=== PATIENT | male | born 1995 | race Two or more races ===

== ENCOUNTER 2024-10-08 03:21 | Emergency (ER) | payer BC, SELFPAY ==
[2024-10-08 03:22] VITALS: BMI 29.0
[2024-10-08 03:31] VITALS: BP 138/91; PULSE 102; RESP 20; TEMP 36.8; O2SAT 97
--- NOTE | 2024-10-08 03:40 | XR_ITS ---
Examination: CT abdomen and pelvis without contrast. Coronal 3-D reconstructions. Sagittal 2-D reconstructions. Date and time of exam:October 08, 2024 0423 hours, comparison August 26, 2010 INDICATIONS: Onset of bilateral flank pain today CTDI: vol (mGy): 10.3 DLP: (mGycm): 611 Technique: Axial images of the abdomen have been obtained, 3 mm slice thickness Intravenous contrast material has not been administered. Low dose protocols were performed. One or more of the following dose reduction techniques were used; automated exposure control, adjustment of the mA and/or KV according to patient size, use of iterative reconstruction technique. Findings: No focal liver or splenic lesions No gallstones No pancreatic or adrenal mass No renal or ureteral calculi, no hydronephrosis Abdominal aorta normal size Normal appendix No bowel obstruction No diverticulitis No prostatomegaly Contracted urinary bladder IMPRESSION: No acute process in the abdomen or pelvis
[2024-10-08] MEDS: KETOROLAC INJ 60 MG/2 ML VIAL IM (04:40)
[2024-10-08 04:57] VITALS: BP 145/95; PULSE 85; RESP 20; TEMP 36.8; O2SAT 97
[2024-10-08 04:59] LABS: Collection Type, Urine Clean Catch; Squamous Epithelial Cell,Urine 0 /hpf (0-5)
[2024-10-08 05:04] LABS: Basophils # (Auto) 0.1 Thou/mm3 (0.0-0.2); Basophils % (Auto) 1 % (0-2.5); Eosinophils # (Auto) 0.3 Thou/mm3 (0.0-0.5); Eosinophils % (Auto) 3 % (0-10); Hematocrit 40.6 % (41.0-53.0); Hemoglobin 14.2 g/dL (13.5-16.0); Immature Granulocytes % (Auto) 0 % (0-0); Immature Granulocytes Auto 0.03 Thou/mm3 (0.00-0.00); Lymphocytes # (Auto) 0.9 Thou/mm3 (1.0-4.8); Lymphocytes % (Auto) 10 % (10-50); Mean Corpuscular Hemoglobin 29.2 pg (25.0-35.0); Mean Corpuscular Volume 84 fL (80-100); Monocytes # (Auto) 0.8 Thou/mm3 (0.0-0.8); Monocytes % (Auto) 9 % (0-12); Neutrophils # (Auto) 7.2 Thou/mm3 (1.8-7.7); Neutrophils % (Auto) 77 % (37-80); Nucleated Red Blood Cell % 0 /100 WBC (0); Platelet Count 203 Thou/mm3 (140-440); RDW Standard Deviation 42.1 fL (35.1-43.9); Red Blood Count 4.86 Miln/mm3 (4.50-5.90); White Blood Count 9.3 Thou/mm3 (3.8-10.6)
[2024-10-08 05:06] LABS: Bilirubin,Urine Negative (Negative); Blood,Urine Negative (Negative); Clarity,Urine Clear (Clear/Hazy); Color,Urine Yellow (Lt Yel-Yel); Culture Indicated,Urine Not Indicated; Glucose, Urine Negative (Negative); Ketones,Urine Negative (Negative); Leukocyte Esterase,Urine Negative (Negative); Nitrite,Urine Negative (Negative); Protein,Urine 1+ (Neg - Trace); RBC,Urine 7 /hpf (0-3); Urobilinogen,Urine Negative mg/dL (0.0-1.0); WBC,Urine 2 /hpf (0-5)
--- NOTE | 2024-10-08 05:11 | PRELIM_ITS ---
CT scan of the abdomen and pelvis without intravenous contrast (axial sections with sagittal and coronal reformats) October 08, 2024 0423 hours Clinical History: L Flank pain Comparison: No prior study is available for comparison. Findings: The lung bases are clear. The liver, gallbladder, pancreas, spleen, kidneys and adrenals are unremarkable on this noncontrast study. No evidence of bowel obstruction. A moderate amount of fecal material is present in the colon. The appendix is within normal limits (coronal images 72-77/167 ). There is no mesenteric or retroperitoneal adenopathy. The urinary bladder is incompletely distended at the time of the examination. There is mild enlargement of the prostate with calcification .There is no free fluid or free air. The osseous structures are unremarkable. Impression: No evidence of renal/ureteric calculus or hydroureteronephrosis. Other findings as described above. Report Electronically Signed By: Karishma Brewster 10/08/2024 5:10:47 AM [EST]
[2024-10-08 05:24] LABS: Alanine Aminotransferase 23 U/L (10-49); Albumin, Serum 4.4 gm/dL (3.5-5.0); Albumin/Globulin Ratio 1.5 (1.2-2.2); Alkaline Phosphatase 107 U/L (46-116); Anion Gap 9 (7-16); Aspartate Amino Transferase 28 U/L (0-34); BUN/Creatinine Ratio 15 Ratio (12-20); Bilirubin,Total 0.3 mg/dL (0.3-1.2); Blood Urea Nitrogen 18 mg/dL (9-23); Calcium 8.9 mg/dL (8.3-10.6); Calcium (Corrected) 8.9 mg/dL (8.5-10.1); Carbon Dioxide 28.7 mMol/L (20.0-31.0); Chloride 106 mMol/L (98-107); Creatinine (Component) 1.2 mg/dL (0.6-1.3); Estimated Creatinine Clearance 92.4 mL/min (>60); Globulin 2.9 gm/dL (2.3-3.5); Glucose 109 mg/dL (74-106); Lipase 33 U/L (12-53); Osmolality,Calculated 289 (275-295); Potassium 4.2 mMol/L (3.4-5.1); Sodium 144 mMol/L (136-145); Total Protein 7.3 gm/dL (5.7-8.2); eGFR > 60 See Note
--- NOTE | 2024-10-08 05:37 | XR_ITS ---
Examination: Testicular sonography complete TECHNIQUE: Patterson scale sonographic images densities, assessment arterial inflow and venous outflow Doppler spectrum analysis Date and time: October 08, 2024 0715 hours INDICATIONS: Onset acute testicular pain on the left beginning 4 hours ago FINDINGS: Right testis 3.7 cm epididymis 1.4 cm Arterial flow to the testicle. No testicular mass Left testis is 3.6 cm epididymis 1.0 cm Arterial flow to the testicle. No testicular Mass. Minimal hydrocele IMPRESSION: Increased flow to both testes, orchitis pattern
--- NOTE | 2024-10-08 05:37 | PD.EDRME ---
Rapid Medical Screening Exam RME Arrival date/time: 10/08/24 03:21 29M with no significant PMH presents to ED with sudden L flank/testicular pain about 1 hour ago. Patient denies dysuria. Chief Complaint: Abdominal Pain Time Seen by Provider: 10/08/24 03:39 Vital signs: Vital Signs Temperature 98.3 F 10/08/24 03:31 Pulse Rate 102 H 10/08/24 03:31 Respiratory Rate 20 10/08/24 03:31 Blood Pressure 138/91 H 10/08/24 03:31 Pulse Oximetry (%) 97 10/08/24 03:31 Oxygen Delivery Method Room Air 10/08/24 03:31
[2024-10-08 06:20] VITALS: BP 127/78; PULSE 76; RESP 20; TEMP 36.7; O2SAT 98
[2024-10-08 07:53] VITALS: BP 138/81; PULSE 71; RESP 16; TEMP 36.9; O2SAT 97
--- NOTE | 2024-10-08 08:25 | EDNOTE_ITS ---
ED General RME/HPI General Chief complaint: Abdominal Pain Stated complaint: L FLANK/L ABD Time Seen by Provider: 10/08/24 03:39 Arrival date/time: 10/08/24 03:21 RME / HPI RME / HPI narrative: 10/08/24 03:21 29M with no significant PMH presents to ED with sudden L flank/testicular pain about 1 hour ago. Patient denies dysuria. DR. ROMERO MAIN ED EVALUATION: 29 year old male presents to the Emergency Department with complaint of left lower abdominal pain today. Associated mild sweating. No dysuria, diarrhea, blood in the stools, or other symptoms reported. Patient also states he has cough, runny nose, sore throat, and body aches onset 2 days. Related Data Allergies Allergy/AdvReac Type Severity Reaction Status Date / Time No Known Allergies Allergy Unverified 10/08/24 08:35 Review of Systems Review of Systems Systems Reviewed: All systems reviewed, normal except as documented Past Medical History Social History SMOKING STATUS: Never smoker ED Exam Narrative Physical exam: Physical Exam: General: The vital signs were reviewed. The patient is non-toxic, in no apparent distress and appears healthy with a patent airway, no respiratory distress and has no apparent circulatory problems. Head & Scalp: Normocephalic, atraumatic. Face: Appears normal and is without lesions, deformity. Ears: Left external pinna appears normal. Right external pinna appears normal. Eyes: The sclera is anicteric. No obvious photophobia. The Left and Right Orbit/Lid/Conjunctiva appears normal without swelling, discoloration or injection. Nose: The nose is without deformity, discharge or tenderness; Throat: Appears normal. The mucous membranes are pink and moist without exudates, redness or mass seen. The tongue appears normal. Neck: The neck is supple and no apparent mass or adenopathy. Chest: The chest wall is normal in size and symmetry and has no chest wall tenderness or crepitus. The patient displays normal ventilator effort without retractions, accessory muscle use and has adequate air movement bilaterally with no wheezes and no rales. Cardiovascular: Regular rate and rhythm; No murmurs, rubs, or gallops; Gastrointestinal: The abdomen appears normal. No obvious hernias or mass. The abdomen with some vague left lower quadrant tenderness otherwise is soft and benign, non-distended, with no pain, no guarding and no rebound tenderness. Bowel sounds are present and normal sounding. No CVA tenderness. Genitourinary: Nontender Back/Spine: Normal inspection Extremities/Musculoskeletal/lymphatic: The bilateral upper and lower extremities are warm. There is no evidence of arterial insufficiency. There is no evidence of venous insufficiency/edema. The patient spontaneously moves bilateral upper and lower extremities with no pain and no limitation of movement. There is no apparent, injury or trauma. Skin: The skin is warm, dry and intact. No rashes. No petechia. No purpura. No abnormal bruising. The color is appropriate with no cyanosis. Mental status/Psychiatric: Mental status is appropriate for age. The patient has no apparent delusions, visual hallucinations, no apparent audible hallucinations. The patient has no apparent suicidal thoughts/ideation and no apparent homicidal thoughts/ideation. Neurological: The patient is awake, alert, interactive, cordial, cooperative and is oriented to name and situation. The patient follows commands and answers historical question with no impairment. There is no visual disturbance apparent. The pupils are equal and reactive bilaterally with normal eye movements and no diplopia The bilateral upper and lower extremities have normal strength, normal range of motion and normal functioning. The gait, station and balance appear to be baseline with no acute change Course Quality Measures none Orders Category Date Time Status Bedside Influenza A&B Antigen Test NOW Care 10/08/24 08:31 Completed Miscellaneous Nursing Order NOW Care 10/08/24 08:[address] abdomen pelvis wo con Stat Exams 10/08/24 03:40 Completed US testicular Stat Exams 10/08/24 05:37 Completed CBC Stat Lab 10/08/24 04:42 Completed CMP [Comprehensive Metabolic Panel] Stat Lab 10/08/24 04:42 Completed COVID-19 Antigen (In-House) Stat Lab 10/08/24 08:45 Completed Lipase Stat Lab 10/08/24 04:42 Completed RSV [Respiratory Syncytial Virus Ag] Stat Lab 10/08/24 08:45 Completed Strep A Rapid Stat Lab 10/08/24 08:45 Completed Urinalysis, C/S if Indicated Stat Lab 10/08/24 04:34 Completed Ketorolac Inj [Toradol Inj] Med 10/08/24 03:40 Discontinued 60 mg IM X1 ONE Sodium Chloride 0.9% 1000 ml [Ns] 1,680 ml Med 10/08/24 08:33 Discontinued IV 1,680 mls/hr Vital Signs Vital signs: Vital Signs Temperature 98.3 F 10/08/24 03:31 Pulse Rate 102 H 10/08/24 03:31 Respiratory Rate 20 10/08/24 03:31 Blood Pressure 138/91 H 10/08/24 03:31 Pulse Oximetry (%) 97 10/08/24 03:31 Oxygen Delivery Method Room Air 10/08/24 03:31 Discharge Plan Plan Patient Disposition: HOME (Self Care) Prescriptions/Referrals Referrals: Rehan Tineo MD [Primary Care Provider] - In 1 week Problem List Clinical Impression: Abdominal pain, acute, left lower quadrant, Viral illness, Acute dehydration Patient/Caregiver Discharge Instructions Education Materials: Abdominal Pain, ED Dehydration (Adult) Additional Instructions: As we discussed Frank have some viral syndrome. You can use Tylenol or ibuprofen for aches and pains. Drink plenty of fluids stay well-hydrated. If you are getting worse in any way please return for reevaluation as we discussed. Today your medical workup revealed swabs for COVID flu and strep which were all negative. RSV was also negative. Testicular ultrasound came back and negative CT scan of the abdomen is entirely negative. Print Language: Bulgarian MDM Narrative MDM hospital course: Patient has feverish symptoms body aches chills for 2 days who has left lower quadrant tenderness on presentation. Medical workup reveals a CT scan of the abdomen which was negative there is no stone seen. The testicular ultrasound was done which was negative. Urine was quite concentrated and there were 7 red cells seen 2 white cells which is clinically insignificant. CMP came back negative lipase was negative. CBC has a white count of 9.3 hemoglobin 14.2 again essentially negative. Because of the concentrated urine and the vague left lower quadrant tenderness were given a liter or 2 of fluid give him some Motrin for the body aches. And reevaluate and make sure he can orally hydrate. Swabs of the throat were all negative. There is no COVID there is no flu Patient got a couple liters of fluid he feels much better. He is drinking with out any nausea or vomiting his abdomen is soft and benign on reevaluation. He was advised return if getting worse. He probably has some viral illness. He is knows to stay well-hydrated and ------- Kristy Romero am scribing for and in the presence of Dr. Romero. Clinical Information Provided by patient Medical Records Reviewed [facility] Meds/Rx Considered, not Ordered None Labs/Rad/Tests considered, not Ordered None Chronic Illness/Social Conditions Add or document further as needed: Denies any PMHx, surgeries, daily medications, or known allergies. EKG EKG not done Lab Interpretation Labs: see narrative above Imaging Imaging interpretation: see narrative above Radiology reports / interpretation(s): Procedure(s): US testicular Accession Number(s): [id number] cc: Rehan Tineo MD; Chilo Tovar MD; Yusef Sorto PA-C~ Examination: Testicular sonography complete TECHNIQUE: Patterson scale sonographic images densities, assessment arterial inflow and venous outflow Doppler spectrum analysis Date and time: October 08, 2024 0715 hours INDICATIONS: Onset acute testicular pain on the left beginning 4 hours ago FINDINGS: Right testis 3.7 cm epididymis 1.4 cm Arterial flow to the testicle. No testicular mass Left testis is 3.6 cm epididymis 1.0 cm Arterial flow to the testicle. No testicular Mass. Minimal hydrocele IMPRESSION: Increased flow to both testes, orchitis pattern Dictated By: Chilo Tovar MD Procedure(s): CT abdomen pelvis wo [facility] Accession Number(s): [id number] cc: Rehan Tineo MD; Chilo Tovar MD; Yusef Sorto PA-C~ Examination: CT abdomen and pelvis without contrast. Coronal 3-D reconstructions. Sagittal 2-D reconstructions. Date and time of exam:October 08, 2024 0423 hours, comparison August 26, 2010 INDICATIONS: Onset of bilateral flank pain today CTDI: vol (mGy): 10.3 DLP: (mGycm): 611 Technique: Axial images of the abdomen have been obtained, 3 mm slice thickness Intravenous contrast material has not been administered. Low dose protocols were performed. One or more of the following dose reduction techniques were used; automated exposure control, adjustment of the mA and/or KV according to patient size, use of iterative reconstruction technique. Findings: No focal liver or splenic lesions No gallstones No pancreatic or adrenal mass No renal or ureteral calculi, no hydronephrosis Abdominal aorta normal size Normal appendix No bowel obstruction No diverticulitis No prostatomegaly Contracted urinary bladder IMPRESSION: No acute process in the abdomen or pelvis Dictated By: Chilo Tovar MD Medication Administration(s) Medication Administration History Discontinued Medications Sodium Chloride (Ns) 1,680 mls @ 1,680 mls/hr 20 ml/kg infuse over 60 min (1680 ml) IV .Q1H ONE Stop: 10/08/24 09:32 Last Infusion: 10/08/24 10:00 Dose: Infused Documented By: Admin: 10/08/24 09:00 Dose: 1,680 mls/hr Documented By: CHANELLE Ketorolac Tromethamine (Ketorolac Inj 60 Mg/2 Ml Vial) 60 mg IM X1 ONE Stop: 10/08/24 03:41 Last Admin: 10/08/24 04:40 Dose: 60 mg Documented By: JACKIE Diagnosis Differential diagnosis: Flu, COVID, dehydration, abdominal pain Most likely dx, and/or detailed dx discussion: Abdominal pain, acute, left lower quadrant Viral illness Acute dehydration Dispositon Disposition: Discharge Home
[2024-10-08 09:07] LABS: Strep A Rapid Negative (Negative)
[2024-10-08 09:17] LABS: Respiratory Syncytial Virus Ag Negative (Negative)
[2024-10-08 09:22] LABS: COVID-19 Antigen (In-House) Negative (Negative)
[2024-10-08 10:05] VITALS: BP 113/86; PULSE 64; RESP 18; TEMP 36.8; O2SAT 98
--- NOTE | 2024-10-08 11:30 | PC.NURSE ---
PT PASSED PO CHALLENGE. ABLE TO AMBULATE INDEPENDENTLY TO AND FROM BR W/STEADY GAIT.
== END 2024-10-08 11:51 | disposition home or self-care (01) ==
PROVIDERS: Physician Assistant; Emergency Provider Emergency Medicine; PCP Family Medicine
DX: B34.9 Viral infection, unspecified (principal); E86.0 Dehydration; N50.812 Left testicular pain; R10.32 Left lower quadrant pain
CPT/HCPCS: 36415; 74176; 76870; 80053; 81001; 83690; 85025; 87400; 87634; 87651; 87811; 96360; 96372; 99284; J1885; J7030

== ENCOUNTER 2024-11-27 14:25 | Emergency (ER) | payer BC, SELFPAY ==
[2024-11-27 14:26] VITALS: BMI 29.7
[2024-11-27 14:36] VITALS: BP 129/89; PULSE 89; RESP 20; TEMP 37.2; O2SAT 98
--- NOTE | 2024-11-27 14:42 | XR_ITS ---
Examination: CT abdomen and pelvis without contrast. Coronal 3-D reconstructions. Sagittal 2-D reconstructions. Date and time of exam:November 27 70,025, 1522 hours INDICATIONS: Lower abdominal pain with diarrhea beginning 2 days ago COMPARISON: October 08, 2024 CTDI: vol (mGy): 9.05 DLP: (mGycm): 499 Technique: Axial images of the abdomen have been obtained, 3 mm slice thickness Intravenous contrast material has not been administered. Low dose protocols were performed. One or more of the following dose reduction techniques were used; automated exposure control, adjustment of the mA and/or KV according to patient size, use of iterative reconstruction technique. Findings: No focal liver or splenic lesion No gallstones No pancreatic or adrenal mass No renal or ureteral calculi 10 mm fat-containing umbilical hernia No pericecal inflammatory change Normal appendix No bowel obstruction No nonspecific colitis or enteritis pattern Contracted urinary bladder Prostate calcification Intact osseous structures IMPRESSION: No renal or ureteral calculi, no hydronephrosis Normal appendix No bowel obstruction No nonspecific colitis or enteritis pattern
--- NOTE | 2024-11-27 14:43 | PD.EDRME ---
Rapid Medical Screening Exam E Arrival date/time: 11/27/24 14:25 29-year-old male presents to the emergency department for complaints of vomiting abdominal pain and diarrhea Chief Complaint: Abdominal Pain Vital signs: Vital Signs Temperature 98.9 F 11/27/24 14:36 Pulse Rate 89 11/27/24 14:36 Respiratory Rate 20 11/27/24 14:36 Blood Pressure 129/89 H 11/27/24 14:36 Pulse Oximetry (%) 98 11/27/24 14:36 Oxygen Delivery Method Room Air 11/27/24 14:36
[2024-11-27] MEDS: HYDROcodone/APAP 5/325 TABLET 1 TAB PO (14:47)
[2024-11-27] MEDS: ONDANSETRON ODT 4 MG TABRAP PO (14:47)
[2024-11-27 15:24] LABS: Basophils # (Auto) 0.1 Thou/mm3 (0.0-0.2); Basophils % (Auto) 1 % (0-2.5); Eosinophils # (Auto) 0.2 Thou/mm3 (0.0-0.5); Eosinophils % (Auto) 2 % (0-10); Hematocrit 39.5 % (41.0-53.0); Hemoglobin 13.5 g/dL (13.5-16.0); Immature Granulocytes Auto 0.01 Thou/mm3 (0.00-0.00); Lymphocytes # (Auto) 1.4 Thou/mm3 (1.0-4.8); Lymphocytes % (Auto) 18 % (10-50); Mean Corpuscular HGB Conc 34.2 g/dl (31.0-37.0); Mean Corpuscular Hemoglobin 29.0 pg (25.0-35.0); Mean Corpuscular Volume 85 fL (80-100); Monocytes # (Auto) 0.5 Thou/mm3 (0.0-0.8); Monocytes % (Auto) 7 % (0-12); Neutrophils # (Auto) 6.0 Thou/mm3 (1.8-7.7); Neutrophils % (Auto) 73 % (37-80); Nucleated Red Blood Cell # 0.00 Thou/mm3 (0.00-0.00); Nucleated Red Blood Cell % 0 /100 WBC (0); Platelet Count 202 Thou/mm3 (140-440); RDW Standard Deviation 41.7 fL (35.1-43.9); Red Blood Count 4.66 Miln/mm3 (4.50-5.90); White Blood Count 8.2 Thou/mm3 (3.8-10.6)
[2024-11-27 16:02] LABS: Alanine Aminotransferase 14 U/L (10-49); Albumin, Serum 4.5 gm/dL (3.5-5.0); Albumin/Globulin Ratio 1.7 (1.2-2.2); Alkaline Phosphatase 95 U/L (46-116); Anion Gap 10 (7-16); Aspartate Amino Transferase 21 U/L (0-34); BUN/Creatinine Ratio 11 Ratio (12-20); Bilirubin,Total 0.6 mg/dL (0.3-1.2); Blood Urea Nitrogen 13 mg/dL (9-23); Calcium 8.8 mg/dL (8.3-10.6); Calcium (Corrected) 8.8 mg/dL (8.5-10.1); Carbon Dioxide 25.5 mMol/L (20.0-31.0); Chloride 104 mMol/L (98-107); Creatinine (Component) 1.2 mg/dL (0.6-1.3); Estimated Creatinine Clearance 93.5 mL/min (>60); Globulin 2.7 gm/dL (2.3-3.5); Glucose 100 mg/dL (74-106); Lipase 33 U/L (12-53); Osmolality,Calculated 277 (275-295); Potassium 3.7 mMol/L (3.4-5.1); Sodium 139 mMol/L (136-145); Total Protein 7.2 gm/dL (5.7-8.2); eGFR > 60 See Note
--- NOTE | 2024-11-27 16:17 | PD.EDABDPN ---
ED Abdominal Pain RME/HPI General Chief Complaint: Abdominal Pain Stated complaint: ABD PAIN SINCE LAST NIGHT, BACK TIGHT Time seen by provider: 11/27/24 16:16 Arrival date/time: 11/27/24 14:25 29-year-old male presents to the emergency department for complaints of vomiting abdominal pain and diarrhea Limitations: no limitations RME / HPI RME / HPI narrative: 11/27/24 14:25 29-year-old male presents to the emergency department for complaints of vomiting abdominal pain and diarrhea Related Data Previous Rx's ?Medication ?Instructions ?Recorded ibuprofen 800 mg tablet 800 mg PO TID PRN pain #30 tabs 11/27/24 loperamide 2 mg capsule (Imodium 2 mg PO Q6H PRN loose stool #14 11/27/24 A-D) caps ondansetron 4 mg disintegrating 4 mg PO Q8H PRN nausea and 11/27/24 tablet vomiting #10 tabs Allergies Allergy/AdvReac Type Severity Reaction Status Date / Time No Known Allergies Allergy Unverified 11/27/24 14:28 Review of Systems Review of Systems Systems Reviewed: All systems reviewed, normal except as documented Constitutional Constitutional: Reports system reviewed and no additional complaints, except as documented, Denies fever(s) and Denies headache(s) Eyes Eyes: Reports system reviewed and no additional complaints, except as documented and Denies blurry vision ENT Ears, Nose, Mouth, and Throat: Reports system reviewed and no additional complaints, except as documented, Denies headache(s), Denies nasal congestion and Denies nasal discharge Cardiovascular Cardiovascular: Reports system reviewed and no additional complaints, except as documented, Denies chest pain and Denies dyspnea Respiratory Respiratory: Reports system reviewed and no additional complaints, except as documented, Denies chest congestion, Denies cough and Denies dyspnea Gastrointestinal Gastrointestinal: Reports system reviewed and no additional complaints, except as documented, Reports abdominal pain, Reports loose stools and Reports vomiting Integumentary/Breasts Skin/Breast: Reports system reviewed and no additional complaints, except as documented and Denies rash Neurologic Neurologic: Reports system reviewed and no additional complaints, except as documented, Reports as per HPI and Denies headache(s) Past Medical History Past Medical History CARDIAC: Negative Congestive Heart Failure RESPIRATORY: Negative Chronic Obstructive Pulmonary Disease (COPD) GENITOURINARY: Negative Renal Disease ENDOCRINE: Negative Diabetes Mellitus Type 1 or Diabetes Mellitus Type 2 Social History SMOKING STATUS: Current every day smoker ED Exam General Limitations: Present no limitations General appearance: Present alert and in no apparent distress Head Head exam: Present atraumatic, normocephalic and normal inspection Eye Eye exam: Present normal appearance, PERRL and EOMI; Absent conjunctival injection ENT ENT exam: Present normal exam, normal oropharynx and mucous membranes moist Neck Neck exam: Present normal inspection, full ROM and trachea midline Chest Chest inspection: Present normal inspection and symmetric chest wall rise Respiratory Respiratory exam: Present normal lung sounds bilaterally; Absent respiratory distress Cardiovascular Cardiovascular exam: Present regular rate, normal rhythm and normal heart sounds Abdominal Exam Abdominal exam: Present soft and normal bowel sounds; Absent distention, tenderness, guarding, rebound or rigidity Extremities Exam Extremities exam: Present normal inspection and full ROM Back Exam Back exam: Present normal inspection and full ROM Neurological Exam Neurological exam: Present alert, oriented X3, CN II-XII intact, normal gait and reflexes normal; Absent motor sensory deficit Psychiatric Psychiatric exam: Present normal affect and normal mood Skin Skin exam: Present warm, dry, intact and normal color; Absent rash Course Quality Measures none Orders Category Date Time Status CT abdomen pelvis wo con Stat Exams 11/27/24 14:42 Completed CBC Stat Lab 11/27/24 15:13 Completed Comprehensive Metabolic Panel Stat Lab 11/27/24 15:13 Completed Lipase Stat Lab 11/27/24 15:13 Completed HYDROcodone*/APAP 5/325 [[place] 5/325] Med 11/27/24 14:43 Discontinued 1 tab PO X1 ONE Ondansetron Odt [Zofran Odt] Med 11/27/24 14:42 Discontinued 4 mg PO X1 ONE Vital Signs Vital signs: Vital Signs Temperature 98.9 F 11/27/24 14:36 Pulse Rate 89 11/27/24 14:36 Respiratory Rate 20 11/27/24 14:36 Blood Pressure 129/89 H 11/27/24 14:36 Pulse Oximetry (%) 98 11/27/24 14:36 Oxygen Delivery Method Room Air 11/27/24 14:36 O2 saturation 98% on room air within the limits Abdominal Pain MDM MDM Narrative MDM Narrative:: 29-year-old male presents to the emergency department for complaints of vomiting abdominal pain and diarrhea Patient has mid upper abdominal pain Lab work and imaging obtained no acute emergent findings noted Symptoms consist with gastroenteritis patient discharged home in no distress to follow-up with primary care doctor in the next 24 to 48 hours and for any worsening symptoms to return to the ER immediately Patient data External records reviewed:: [facility] previous records Clinical information provided by:: patient Social determinants that could affect healthcare access:: none Patient has the following chronic illnesses:: None How is presenting disease/condition affected by chronic disease/condition?: no chronic disease Evaluation data The following diagnostics were reviewed and interpreted by me:: lab results and radiology exam(s) Lab and/or radiology exams considered but not ordered:: Labs radiology obtained Interpretation Summary: reviewed by me Medications / Prescriptions Medications or Prescriptions considered but not ordered:: Given Medication administrations:: Medication Administration History Discontinued Medications Hydrocodone Bitart/Acetaminophen (Hydrocodone/Apap 5/325 Tablet) 1 tab PO X1 ONE Stop: 11/27/24 14:44 Last Admin: 11/27/24 14:47 Dose: 1 tab Documented By: Ondansetron HCl (Ondansetron Odt 4 Mg Tabrap) 4 mg PO X1 ONE; Protocol Stop: 11/27/24 14:43 Last Admin: 11/27/24 14:47 Dose: 4 mg Documented By: Given Consultations Consultation(s) initiated? (list below): No Diagnosis Differential diagnosis abdominal pain: abdominal pain, acute appendicitis and small bowel obstruction Most likely diagnosis given after review of the tests above:: Abdominal pain Admission Indicated Admission indicated?: not indicated Admission Request Was there a request for admission?: No Disposition Plan Disposition Plan: Discharge Discharge Attestation Discharge Attestation: The patient and all family members were given an opportunity to ask questions and understood the discharge instructions. Discharge instructions specifically effects, indications for sooner follow up or return to the emergency department, and the expected course of current diagnosis. Patient condition: Stable Discharge Plan Plan Patient Disposition: HOME (Self Care) Discharge Disposition comment: Stable Prescriptions/Referrals Prescriptions/Med Rec: New loperamide [Imodium A-D] 2 mg capsule 2 mg PO Q6H PRN (Reason: loose stool) Qty: 14 0RF ibuprofen 800 mg tablet 800 mg PO TID PRN (Reason: pain) Qty: 30 0RF ondansetron 4 mg tablet,disintegrating 4 mg PO Q8H PRN (Reason: nausea and vomiting) Qty: 10 0RF Referrals: Fahad Lomas(STEVEN SANDOVAL/MD TIERRA [Primary Care Provider] - 11/29/24 Problem List Clinical Impression: Gastroenteritis Patient/Caregiver Discharge Instructions Education Materials: How the Colon Works Additional Instructions: Please follow up with your primary care doctor in the next 24-48hrs for any worsening symptoms return here immediately Print Language: Syriac Stand Alone Forms: Karla Award Info., Work/School Release, Patient Portal Info Letter PA/OWNER CONSULTING ENGINEER Supervising Physician PA/OWNER CONSULTING ENGINEER Supervising Physician: Dr. Campos PERRIN Attestation MD Attestation The patient was seen by the midlevel practitioner. I, the co-signing physician, was present during the entire ER visit. While I did not physically examine the patient, I was available for consultation as needed. I agree with the plan and documentation.
== END 2024-11-27 16:26 | disposition home or self-care (01) ==
PROVIDERS: Nurse Practitioner Primary Care; Emergency Provider Family Medicine; PCP Family Medicine
DX: K52.9 Noninfective gastroenteritis and colitis, unspecified (principal); F17.210 Nicotine dependence, cigarettes, uncomplicated
CPT/HCPCS: 36415; 74176; 80053; 81001; 83690; 85025; 99283; Q0162; A9270

== ENCOUNTER 2024-12-23 20:28 | Emergency (ER) | payer BC, SELFPAY ==
[2024-12-23 20:29] VITALS: BMI 28.1
[2024-12-23 21:02] VITALS: BP 144/107; BP 186/92; PULSE 76; RESP 20; TEMP 37; O2SAT 100
[2024-12-23] MEDS: DIAZEPAM 5 MG TABLET 10 MG PO (21:43)
--- NOTE | 2024-12-23 23:24 | EDNOTE_ITS ---
ED Anxiety RME/HPI General Chief Complaint: Anxiety Stated Complaint: ANXIOUS Time Seen by Provider: 12/23/24 21:26 Arrival date/time: 12/23/24 20:28 29M with history of anxiety presents to ED with panic attacks today due to increased stress in life including brother who is involved in drugs injured himself. Patient denies SI/HI. Limitations: no limitations Related Data Previous Rx's ?Medication ?Instructions ?Recorded ibuprofen 800 mg tablet 800 mg PO TID PRN pain #30 t abs 11/27/24 loperamide 2 mg capsule (Imodium 2 mg PO Q6H PRN loose stool #14 11/27/24 A-D) caps ondansetron 4 mg disintegrating 4 mg PO Q8H PRN nausea and 11/27/24 tablet vomiting #10 tabs Allergies Allergy/AdvReac Type Severity Reaction Status Date / Time No Known Allergies Allergy Verified 12/23/24 20:29 Review of Systems Review of Systems Systems Reviewed: All systems reviewed, normal except as documented Constitutional Constitutional: Reports system reviewed and no additional complaints, except as documented, Denies fever(s) and Denies headache(s) ENT Ears, Nose, Mouth, and Throat: Denies disequilibrium and Denies headache(s) Cardiovascular Cardiovascular: Reports system reviewed and no additional complaints, except as documented, Denies chest pain and Denies dyspnea Respiratory Respiratory: Reports system reviewed and no additional complaints, except as documented, Denies cough and Denies dyspnea Gastrointestinal Gastrointestinal: Reports system reviewed and no additional complaints, except as documented, Denies abdominal pain, Denies nausea and Denies vomiting Neurologic Neurologic: Reports system reviewed and no additional complaints, except as documented, Denies confusion, Denies disequilibrium and Denies headache(s) Psychiatric Psychiatric: Reports as per HPI, Denies confusion and Reports panic attacks Past Medical History Past Medical History CARDIAC: Negative Congestive Heart Failure RESPIRATORY: Negative Chronic Obstructive Pulmonary Disease (COPD) GENITOURINARY: Negative Renal Disease ENDOCRINE: Negative Diabetes Mellitus Type 1 or Diabetes Mellitus Type 2 Social History SMOKING STATUS: Current every day smoker ED Exam General Limitations: Present no limitations General appearance: Present alert and anxious (very) Head Head exam: Present atraumatic Neck Neck exam: Present normal inspection, full ROM and trachea midline Chest Chest inspection: Present normal inspection and symmetric chest wall rise Extremities Exam Extremities exam: Present normal inspection and full ROM Back Exam Back exam: Present normal inspection and full ROM Neurological Exam Neurological exam: Present alert, oriented X3 and CN II-XII intact Psychiatric Psychiatric exam: Present normal affect Skin Skin exam: Present warm, dry, intact and normal color Course Quality Measures none Orders Category Date Time Status Diazepam [Valium] Med 12/23/24 21:26 Discontinued 10 mg PO X1 ONE Vital Signs Vital signs: Vital Signs Temperature 98.6 F 12/23/24 21:02 Pulse Rate 76 12/23/24 21:02 Respiratory Rate 20 12/23/24 21:02 Blood Pressure 186/92 H 12/23/24 21:02 Pulse Oximetry (%) 100 12/23/24 21:02 Oxygen Delivery Method Room Air 12/23/24 21:02 Anxiety MDM Narrative MDM Narrative: 29M with history of anxiety presents to ED with panic attacks today due to increased stress in life including brother who is involved in drugs injured himself. Patient denies SI/HI. Physical exam reveals very anxious male. Patient is afebrile and alert. Meds and education counselor given. Patient does not want to wait for observation period. Patient data External records reviewed:: [facility] previous records Clinical information provided by:: patient Social determinants that could affect healthcare access:: substance use Patient has the following chronic illnesses:: anxiety How is presenting disease/condition affected by chronic disease/condition?: exacerbated by Evaluation data The following diagnostics were reviewed and interpreted by me:: other (specify) (none) Lab and/or radiology exams considered but not ordered:: not ordered Interpretation Summary: n/a Medications / Prescriptions Medications or Prescriptions considered but not ordered:: ordered Medication administrations:: Medication Administration History Discontinued Medications Diazepam (Diazepam 5 Mg Tablet) 10 mg PO X1 ONE Stop: 12/23/24 21:27 Last Admin: 12/23/24 21:43 Dose: 10 mg Documented By: Consultations Consultation(s) initiated? (list below): No Diagnosis Differential diagnosis anxiety: hyperventilation, panic disorder (panic attack due to stress) and acute anxiety Most likely diagnosis given after review of the tests above:: panic attack due to stress Admission Indicated Admission indicated?: not indicated Admission Request Was there a request for admission?: No Disposition Plan Disposition Plan: Discharge Discharge Attestation Discharge Attestation: The patient and all family members were given an opportunity to ask questions and understood the discharge instructions. Discharge instructions specifically effects, indications for sooner follow up or return to the emergency department, and the expected course of current diagnosis. Patient condition: Stable Discharge Plan Plan Patient Disposition: HOME (Self Care) Discharge Disposition comment: Stable Prescriptions/Referrals Prescriptions/Med Rec: No Action loperamide [Imodium A-D] 2 mg capsule 2 mg PO Q6H PRN (Reason: loose stool) Qty: 14 0RF ibuprofen 800 mg tablet 800 mg PO TID PRN (Reason: pain) Qty: 30 0RF ondansetron 4 mg tablet,disintegrating 4 mg PO Q8H PRN (Reason: nausea and vomiting) Qty: 10 0RF Problem List Clinical Impression: Panic attack as reaction to stress Patient/Caregiver Discharge Instructions Education Materials: Your Body's Response to Anxiety, ED Panic Attack Additional Instructions: Please follow-up with PCP within 24-48 hours and return immediately if symptoms worsen. Print Language: German Stand Alone Forms: Patient Portal Info Letter KALPANA/WHITNEY Supervising Physician KALPANA/WHITNEY Supervising Physician: Dr. King
== END 2024-12-23 21:50 | disposition home or self-care (01) ==
LOC: SERX 21:37
PROVIDERS: Emergency Provider Emergency Medicine; PCP Family Medicine
DX: F43.0 Acute stress reaction (principal)
CPT/HCPCS: 99282; A9270